=== PATIENT | male | born 1975 | race Caucasian/White ===

== ENCOUNTER 2020-11-18 13:13 | Emergency (ER) | payer SELFPAY ==
[~2020-11-18] VITALS: Ht 187 cm; Wt 92.9 kg
--- NOTE | 2020-11-18 13:36 | ED General ---
General Chief Complaint: General Problems/Pain Stated Complaint: ABD LABS Source of Information: Patient Exam Limitations: No Limitations History of Present Illness Date Seen by Provider: Nov 18, 2020 Time Seen by Provider: 13:33 Initial Comments To ER by private vehicle from [facility] urgent care where he presented with reports of dizziness for the past year. This dizziness was intermittent lasting a few minutes at a time. It goes away and comes about spontaneously. He has nausea with it. Denies any chest pain or shortness of breath. He had an EKG done at [facility] urgent care which showed some ST elevation in one of the leads and he was referred here for possible STEMI. Timing/Duration: 1-2 Days Severity: Moderate Associated Systoms: Denies Symptoms Allergies and Home Medications Allergies Coded Allergies: No Known Drug Allergies (Unverified , 11/18/20) Patient Home Medication List Home Medication List Reviewed: Yes Review of Systems Review of Systems Constitutional: see HPI EENTM: see HPI Respiratory: no symptoms reported Cardiovascular: no symptoms reported Genitourinary: no symptoms reported Musculoskeletal: no symptoms reported Skin: no symptoms reported Psychiatric/Neurological: No Symptoms Reported Physical Exam Vital Signs Vital Signs - First Documented 11/18/20 13:35 Temp 36.7 Pulse 64 Resp 18 B/P (MAP) 151/89 (109) Pulse Ox 99 Capillary Refill : Height, Weight, BMI Height: '" Weight: lbs. oz. kg; BMI Method: General Appearance: No Apparent Distress, WD/WN, Other (There is ST elevation in lead II only no reciprocal depression. He has no chest pain or shortness of breath dizziness or nausea.) Eyes: Bilateral Eye Normal Inspection, Bilateral Eye PERRL, Bilateral Eye EOMI Respiratory: Lungs Clear, Normal Breath Sounds, No Accessory Muscle Use, No Respiratory Distress Cardiovascular: Regular Rate, Rhythm, Normal Peripheral Pulses Gastrointestinal: Non Tender, Soft Extremity: Normal Capillary Refill, Normal Inspection Neurologic/Psychiatric: Alert, Oriented x3 Skin: Normal Color, Warm/Dry Progress/Results/Core Measures Suspected Sepsis SIRS Temperature: Pulse: Respiratory Rate: Laboratory Tests 11/18/20 13:36: White Blood Count 6.3 Blood Pressure / Mean: Laboratory Tests 11/18/20 13:36: Creatinine 0.86, Platelet Count 249 Results/Orders Lab Results Laboratory Tests Test 11/18/20 13:36 Range/Units White Blood Count 6.3 4.3-11.0 10^3/uL Red Blood Count 5.00 4.30-5.52 10^6/uL Hemoglobin 15.5 13.3-17.7 g/dL Hematocrit 45 40-54 % Mean Corpuscular Volume 89 80-99 fL Mean Corpuscular Hemoglobin 31 25-34 pg Mean Corpuscular Hemoglobin Concent 35 32-36 g/dL Red Cell Distribution Width 11.2 10.0-14.5 % Platelet Count 249 130-400 10^3/uL Mean Platelet Volume 9.0 9.0-12.2 fL Immature Granulocyte % (Auto) 0 % Neutrophils (%) (Auto) 64 42-75 % Lymphocytes (%) (Auto) 28 12-44 % Monocytes (%) (Auto) 7 0-12 % Eosinophils (%) (Auto) 0 0-10 % Basophils (%) (Auto) 0 0-10 % Neutrophils # (Auto) 4.1 1.8-7.8 10^3/uL Lymphocytes # (Auto) 1.8 1.0-4.0 10^3/uL Monocytes # (Auto) 0.4 0.0-1.0 10^3/uL Eosinophils # (Auto) 0.0 0.0-0.3 10^3/uL Basophils # (Auto) 0.0 0.0-0.1 10^3/uL Immature Granulocyte # (Auto) 0.0 0.0-0.1 10^3/uL Sodium Level 138 135-145 MMOL/L Potassium Level 3.7 3.6-5.0 MMOL/L Chloride Level 103 98-107 MMOL/L Carbon Dioxide Level 26 21-32 MMOL/L Anion Gap 9 5-14 MMOL/L Blood Urea Nitrogen 17 7-18 MG/DL Creatinine 0.86 0.60-1.30 MG/DL Estimat Glomerular Filtration Rate > 60 BUN/Creatinine Ratio 20 Glucose Level 99 70-105 MG/DL Calcium Level 9.3 8.5-10.1 MG/DL Troponin I < 0.028 <0.028 NG/ML My Orders Orders - STERLING RICHARD APRN Ekg Tracing (11/18/20 13:32) Troponin I (11/18/20 13:32) Basic Metabolic Panel (11/18/20 13:32) Cbc With Automated Diff (11/18/20 13:32) Vital Signs/I&O 11/18/20 13:35 Temp 36.7 Pulse 64 Resp 18 B/P (MAP) 151/89 (109) Pulse Ox 99 Capillary Refill : Departure Communication (Admissions) I reviewed the EKGs with Dr. Samuel agrees that this is early repolarization. Nothing alarming, agrees to follow-up outpatient. Agrees with checking some labs. There is no reciprocal ST depression. Impression Primary Impression: Ekg normal variant Additional Impression: Intermittent dizziness Disposition: HOME, SELF-CARE Condition: Stable Departure-Patient Inst. Decision time for Depature: 14:13 Referrals: CHON ROBERTS MD FACP FAC CCDS NAOMI SAMUEL MD NO,LOCAL PHYSICIAN (PCP) Primary Care Physician Patient Instructions: NO INSTRUCTIONS GIVEN Add. Discharge Instructions: 1. Return to ER for any concerns. Follow-up with primary care within 1 week for further evaluation of your dizziness. If you have palpitations or lightheadedness that precedes these episodes of dizziness it would be a good idea to follow-up with cardiology. All discharge instructions reviewed with patient and/or family. Voiced understanding. STERLING RICHARD APRN Nov 18, 2020 13:35
[2020-11-18 13:42] LABS: BASOPHILS % (AUTO) 0 % (0-10); EOSINOPHILS % (AUTO) 0 % (0-10); HEMATOCRIT 45 % (40-54); HEMOGLOBIN 15.5 g/dL (13.3-17.7); LYMPHOCYTES # (AUTO) 1.8 10^3/uL (1.0-4.0); LYMPHOCYTES % (AUTO) 28 % (12-44); MEAN CORPUSCULAR HEMOGLOBIN 31 pg (25-34); MEAN CORPUSCULAR HGB CONC 35 g/dL (32-36); MEAN CORPUSCULAR VOLUME 89 fL (80-99); MONOCYTES # (AUTO) 0.4 10^3/uL (0.0-1.0); MONOCYTES % (AUTO) 7 % (0-12); NEUTROPHILS # (AUTO) 4.1 10^3/uL (1.8-7.8); NEUTROPHILS % (AUTO) 64 % (42-75); PLATELET COUNT 249 10^3/uL (130-400); WHITE BLOOD COUNT 6.3 10^3/uL (4.3-11.0)
[2020-11-18 13:53] LABS: CHLORIDE 103 MMOL/L (98-107); POTASSIUM 3.7 MMOL/L (3.6-5.0); SODIUM 138 MMOL/L (135-145)
[2020-11-18 13:54] LABS: CALCIUM 9.3 MG/DL (8.5-10.1)
[2020-11-18 13:55] LABS: GLUCOSE 99 MG/DL (70-105)
[2020-11-18 13:56] LABS: CARBON DIOXIDE 26 MMOL/L (21-32)
[2020-11-18 13:59] LABS: BUN/CREATININE RATIO 20; CREATININE SERUM 0.86 MG/DL (0.60-1.30); GFR ESTIMATED > 60
[2020-11-18 14:24] VITALS: BP 142/80
== END 2020-11-18 14:24 | disposition home or self-care (01) ==
LOC: EDUNIT# 13:13 → ER 13:15
DX: R94.31 Abnormal electrocardiogram [ECG] [EKG] (principal); R42 Dizziness and giddiness
CPT/HCPCS: 36415; 80048; 84484; 85025; 93005